=== PATIENT | female | born 1945 | race Caucasian/White ===

== ENCOUNTER 2022-03-19 18:20 | Emergency (ER) | payer SELFPAY ==
[2022-04-13 12:12] LABS: ESTIMATED GFR 26 mL/min (>60)
== END 2022-03-19 22:20 | disposition home or self-care (01) ==
LOC: JP.ED 18:20
DX: U07.1 COVID-19 (principal)
CPT/HCPCS: 36415; 80053; 81001; 83605; 85027; 87086; 99284; U0002

== ENCOUNTER 2022-07-23 15:02 | Emergency (ER) | payer MEDICARE | END 2022-07-23 17:00 | disposition home or self-care (01) | LOC: JP.ED 15:02 | DX: K52.9 Noninfective gastroenteritis and colitis, unspecified (principal); H61.21 Impacted cerumen, right ear | CPT/HCPCS: 36415; 80048; 85025; 99283 ==